=== PATIENT | female | born 1985 | race Caucasian/White ===

== ENCOUNTER 2017-09-15 21:27 | Outpatient (CLI) | payer MEDICAID ==
[~2017-09-15] VITALS: Ht 162.6 cm; Wt 54.5 kg
[2017-09-15 22:29] VITALS: BP 99/54; PULSE 97; TEMP 98
[2017-09-15 23:15] VITALS: BP 100/56; PULSE 82
== END 2017-09-15 23:30 | disposition home or self-care (01) ==
LOC: LDRO 21:27
DX: O71.89 Other specified obstetric trauma (principal); W19.XXXA Unspecified fall, initial encounter; Z3A.26 26 weeks gestation of pregnancy

== ENCOUNTER 2017-12-14 12:14 | Outpatient (CLI) | payer MEDICAID ==
[~2017-12-14] VITALS: Ht 162.6 cm; Wt 59.1 kg
[2017-12-14 12:23] VITALS: BP 102/55; PULSE 74; TEMP 97.5
[2017-12-14] MEDS ORDERED: PRENATAL PO (12:30)
[2017-12-14 13:30] VITALS: BP 125/55; PULSE 93
== END 2017-12-14 13:45 | disposition home or self-care (01) ==
LOC: LDRO 12:14
DX: O46.93 Antepartum hemorrhage, unspecified, third trimester (principal); Z3A.39 39 weeks gestation of pregnancy

== ENCOUNTER 2017-12-14 20:13 | Outpatient (CLI) | payer MEDICAID ==
[~2017-12-14 20:13] MED LIST: PRENATAL PO
[2017-12-14 21:00] VITALS: BP 105/62; PULSE 100; TEMP 98.4
== END 2017-12-14 21:55 | disposition home or self-care (01) ==
LOC: LDRO 20:13 → LDR 21:46 → LDRO 21:55
DX: Z34.83 Encounter for supervision of other normal pregnancy, third trimester (principal); Z3A.39 39 weeks gestation of pregnancy
CPT/HCPCS: OP

== ENCOUNTER 2017-12-15 12:06 | Inpatient (IN) | payer MEDICAID ==
[~2017-12-15] VITALS: Ht 162.6 cm; Wt 59.1 kg
[2017-12-15] VITALS (22 sets, daily range): BP systolic 87–152; BP diastolic 45–83; PULSE 60–116; TEMP 97.1–100.2
[2017-12-15 13:00] LABS: BASO % 0.1 % (0.0-2.0); GRAN # 10.9 (1.4-6.5); GRAN % 89.6 % (42.2-75.2); HEMATOCRIT 32.1 % (37.0-47.0); HEMOGLOBIN 10.7 g/dl (12.5-16.0); LYMPH # 0.5 (1.2-3.4); LYMPH % 4.2 % (20.0-51.0); MEAN CELL VOLUME 88 fl (80.0-100.0); MEAN CORPUSCULAR HEMOGLOBIN 29 pg (27.0-31.0); MEAN CORPUSCULAR HGB CONC 33 g/dl (33.0-37.0); MEAN PLATELET VOLUME 11.7 fl (7.4-10.4); MONO # 0.7 (0.1-0.6); MONO % 5.6 % (1.7-9.3); PLATELET COUNT 156 K/mm3 (130-400); RED BLOOD COUNT 3.64 M/mm3 (4.10-5.30); REDCELL DISTRIBUTION WIDTH-CV 14.1 % (11.5-14.5)
[2017-12-16 03:40] VITALS: BP 88/44; PULSE 90; TEMP 98.9
[2017-12-16 08:10] VITALS: BP 93/40; PULSE 78; TEMP 97.8
[2017-12-16] MEDS ORDERED: IBU600 MG PO (09:25)
== END 2017-12-16 18:35 | disposition home or self-care (01) | DRG 775 ==
LOC: LDRO 12:06 → LDR 12:27 → OB 17:30
PROVIDERS: Obstetrics & Gynecology
PROC: 10E0XZZ Delivery of Products of Conception, External Approach (ICD-10-PCS; principal; 2017-12-15)
PROC: 0HQ9XZZ Repair Perineum Skin, External Approach (ICD-10-PCS; 2017-12-15)
DX: O70.0 First degree perineal laceration during delivery (principal); Z3A.39 39 weeks gestation of pregnancy; Z37.0 Single live birth; O69.1XX0 Labor and delivery complicated by cord around neck, with compression, not applicable or unspecified; O99.344 Other mental disorders complicating childbirth; F41.8 Other specified anxiety disorders
CPT/HCPCS: J2590; J2795; J7120

== ENCOUNTER 2019-09-20 16:26 | Emergency (ER) | payer SELFPAY ==
[~2019-09-20] VITALS: Ht 5.1 cm; Wt 60.9 kg
[~2019-09-20 16:26] MED LIST changes: +AMOXICILLIN 8751 TAB PO; +IBU600 MG PO; +NORCO 325 MG-51 TAB PO
[2019-09-20 16:34] VITALS: BP 111/55; PULSE 70; TEMP 98.2
[2019-09-20] MEDS ORDERED: CLEOCIN HCL300 MG PO (17:46)
== END 2019-09-20 17:52 | disposition home or self-care (01) ==
LOC: COL.ER 16:26
DX: K11.8 Other diseases of salivary glands (principal)